=== PATIENT | female | born 1960 | race Two or more races ===

== ENCOUNTER → 2025-03-24 | Outpatient (CLI) | payer OTHER, MEDICAID, SELFPAY ==
--- NOTE | 2025-03-24 | XR_ITS ---
Examination: Bilateral AP knees single view Technique one AP portable standing bilateral knees single view Date and time: March 24, 2025 1043 hours INDICATIONS: Bilateral knee pain one year. One is: Severe osteopenia. Advanced narrowing medial joint space right knee, [id number] Advanced osteoarthritis lateral joint space right knee Moderate narrowing osteoarthritis medial lateral joint spaces left knee No fractures IMPRESSION: Advanced narrowing medial joint space right knee, [id number]
== END | disposition home or self-care (01) ==
PROVIDERS: PCP Nurse Practitioner Family; Referring Provider Nurse Practitioner Family; Visit Provider Nurse Practitioner Family
DX: M25.861 Other specified joint disorders, right knee (principal)
CPT/HCPCS: 73565

== ENCOUNTER 2025-04-05 11:21 | Emergency (ER) | payer OTHER, MEDICAID, SELFPAY ==
--- NOTE | 2025-04-05 11:35 | PC.NURSE ---
BEDSIDE BS CHECK 42. PT A/O. JUICE AND SANDWICH GIVEN. CHARGE NURSE NOTIFIED.
[2025-04-05 11:42] VITALS: BP 192/92; PULSE 82; RESP 16; O2SAT 99; BMI 29.9
--- NOTE | 2025-04-05 11:56 | PD.EDRECHK ---
ED Recheck Abnl Lab Rx-RME/HPI General Chief Complaint: Recheck/Abnormal Lab/Rx Stated Complaint: CAN'T CONTROL BS Time Seen by Provider: 04/05/25 11:54 Arrival date/time: 04/05/25 11:21 RME / HPI RME / HPI narrative: 65-year-old female patient was brought in by family for evaluation regarding acting right complaining of generalized weakness. Patient woke up this morning with a blood sugar of 180, her family gave her 10 units of insulin and patient went back to sleep she did not eat her breakfast. She woke up feeling tired and elevated confused according to the family. When the patient arrived at triage her blood sugar was noted to be 42. Patient is alert and oriented x 3 on my initial evaluation. She was eating sandwich and drinking orange juice. She denies any vomiting denies any diarrhea she denies any chest pain denies any abdominal pain denies any fever. She is taking metformin and insulin shots. Related Data Home Medications ?Medication ?Instructions ?Recorded ?Confirmed metformin 1,000 mg tablet 1,000 mg PO BID 02/18/19 07/27/21 pravastatin 20 mg tablet 20 mg PO QDAY 02/18/19 07/27/21 lisinopril 20 mg tablet (Prinivil) 20 mg PO QDAY 07/27/21 07/27/21 Allergies Allergy/AdvReac Type Severity Reaction Status Date / Time No Known Allergies Allergy Verified 07/27/21 05:25 Review of Systems Review of Systems Narrative Review of Systems: Review of system reviewed and within normal limits except mentioned in HPI ED Exam Narrative Physical exam: VITAL SIGNS: Reviewed. GENERAL APPEARANCE: Alert and interactive, follows commands, no acute distress, HEAD AND FACE: Non-traumatic. ENT: PERRL, pink conjunctivitis, eyelid no trauma, Mucous membrane moist. NECK: Supple, nontender, no nuchal rigidity. CHEST: No tenderness, no crepitus, no paradoxical movement, no retractions. LUNGS: Clear, well ventilated, symmetric, no rales, no wheezing, no ronchi, no stridor, good breath sounds bilaterally. HEART: Regular rate, regular rhythm, no murmur, no gallops. ABDOMEN: Soft, positive bowel sounds, nondistended, no guarding, nontender, no rebound, no masses, RECTAL: Deferred. GENITAL: Deferred. NEUROLOGICAL: Gross motor function intact sensory function intact, Appropriate for age. MUSCULOSKELETAL: low back nontender, full range of motion. EXTREMITIES: Nontender, full range of motion. SKIN: Color pink, dry, no rash, no lacerations, no abrasions, no contusions. LYMPHATICS: Deferred. Course Quality Measures none Orders Category Date Time Status Bedside COVID-19 Antigen Test NOW Care 04/05/25 12:04 Completed XR chest 1V Stat Exams 04/05/25 12:03 Completed B-Type Natriuretic Peptide Stat Lab 04/05/25 11:48 Completed CBC Stat Lab 04/05/25 11:48 Completed Comprehensive Metabolic Panel Stat Lab 04/05/25 11:48 Completed Partial Thromboplastin Time Stat Lab 04/05/25 11:48 Completed Troponin I Stat Lab 04/05/25 11:48 Completed Urinalysis, C/S if Indicated Stat Lab 04/05/25 12:52 Completed Vital Signs Vital signs: Vital Signs Pulse Rate 82 04/05/25 11:42 Respiratory Rate 16 04/05/25 11:42 Blood Pressure 192/92 H 04/05/25 11:42 Pulse Oximetry (%) 99 04/05/25 11:42 Oxygen Delivery Method Room Air 04/05/25 11:42 Recheck / Abnormal Lab / Rx MDM Narrative MDM Narrative:: 65-year-old female patient was brought in by family for evaluation regarding acting right complaining of generalized weakness. Patient woke up this morning with a blood sugar of 180, her family gave her 10 units of insulin and patient went back to sleep she did not eat her breakfast. She woke up feeling tired and elevated confused according to the family. When the patient arrived at triage her blood sugar was noted to be 42. Patient is alert and oriented x 3 on my initial evaluation. She was eating sandwich and drinking orange juice. She denies any vomiting denies any diarrhea she denies any chest pain denies any abdominal pain denies any fever. She is taking metformin and insulin shots. Patient remained stable, there is no recurrence of hypoglycemia in the ED. Initial repeat blood sugar was noted to be 151 prior to discharge went up to 161. No symptoms. Patient ate sandwich and orange juice in the ED. Patient stable for discharge home I told her not to give herself insulin shot and go back to sleep especially the fast acting insulin. Without eating. Patient and family agrees with the plan. Patient's workup is significant for blood sugar of 40 the rest of the labs unremarkable Patient data External records reviewed:: None Clinical information provided by:: family Social determinants that could affect healthcare access:: none Patient has the following chronic illnesses:: Diabetes mellitus hypertension How is presenting disease/condition affected by chronic disease/condition?: exacerbated by Evaluation data The following diagnostics were reviewed and interpreted by me:: radiology exam(s) Lab and/or radiology exams considered but not ordered:: None Interpretation Summary: I personally reviewed and interpreted the x-ray of this patient. There is no acute abnormalities found, no infiltrates no pneumothorax no hemothorax normal chest x-ray. Review of other structures was without significant abnormal findings also. I additionally reviewed the radiologist report and agree with the interpretation. Medications / Prescriptions Medications or Prescriptions considered but not ordered:: None Medication administrations:: None Consultations Consultation(s) initiated? (list below): No Diagnosis Recheck Differential Diagnosis: other (Altered mental status, hypoglycemia, poor medication compliance) Most likely diagnosis given after review of the tests above:: Hypoglycemia secondary to diabetes mellitus Admission Indicated Admission indicated?: not indicated Admission Request Was there a request for admission?: No Disposition Plan Disposition Plan: Discharge Discharge Attestation Discharge Attestation: The patient and all family members were given an opportunity to ask questions and understood the discharge instructions. Discharge instructions specifically effects, indications for sooner follow up or return to the emergency department, and the expected course of current diagnosis. Patient condition: Stable Discharge Plan Plan Patient Disposition: HOME (Self Care) Discharge Disposition comment: Stable Prescriptions/Referrals Prescriptions/Med Rec: No Action metformin 1,000 mg Tablet 1,000 mg PO BID pravastatin 20 mg Tablet 20 mg PO QDAY lisinopril [Prinivil] 20 mg Tablet 20 mg PO QDAY Referrals: Petra([facility]),LADONNA Bush [Primary Care Provider] - In 1 week Problem List Clinical Impression: Hypoglycemia Patient/Caregiver Discharge Instructions Discharge Activity: activity as tolerated Education Materials: Hypoglycemia (Low Blood Sugar) Additional Instructions: Thank you for the opportunity for serving you today. You are stable for discharged . You are advised to: Follow-up with your PCP in 1 to 2 days Return to ED for worsening of symptoms Increase oral fluids Eat 3 meals a day with snacks in between, and do not give yourself insulin and go back to sleep specially the fast acting insulin without eating Print Language: Welsh Stand Alone Forms: Al[facility] Award Info., Patient Portal Info Letter PA/CLINICAL CARE MANAGER Supervising Physician PA/CLINICAL CARE MANAGER Supervising Physician: MD Wilner
--- NOTE | 2025-04-05 12:03 | XR_ITS ---
Examination: AP chest single view Technique one AP portable upright chest single view Date and time: April 05, 2025 12:15 PM, comparison July 24, 2021 INDICATIONS: Chest pain weakness beginning 2 days ago. FINDINGS: Normal heart size. Lungs are clear. The osseous structures are intact IMPRESSION: No active disease.
[2025-04-05 12:16] LABS: Basophils # (Auto) 0.0 Thou/mm3 (0.0-0.2); Basophils % (Auto) 0 % (0-2.5); Eosinophils # (Auto) 0.0 Thou/mm3 (0.0-0.5); Eosinophils % (Auto) 0 % (0-10); Hematocrit 39.9 % (36.0-46.0); Hemoglobin 13.1 g/dL (12.0-16.0); Immature Granulocytes Auto 0.03 Thou/mm3 (0.00-0.00); Lymphocytes # (Auto) 1.1 Thou/mm3 (1.0-4.8); Lymphocytes % (Auto) 12 % (10-50); Mean Corpuscular HGB Conc 32.8 g/dl (31.0-37.0); Mean Corpuscular Hemoglobin 30.5 pg (25.0-35.0); Mean Corpuscular Volume 93 fL (80-100); Monocytes # (Auto) 0.4 Thou/mm3 (0.0-0.8); Monocytes % (Auto) 4 % (0-12); Neutrophils # (Auto) 7.8 Thou/mm3 (1.8-7.7); Neutrophils % (Auto) 83 % (37-80); Nucleated Red Blood Cell # 0.00 Thou/mm3 (0.00-0.00); Nucleated Red Blood Cell % 0 /100 WBC (0); Platelet Count 250 Thou/mm3 (140-440); RDW Standard Deviation 43.0 fL (36.4-46.3); Red Blood Count 4.30 Miln/mm3 (4.00-5.20); White Blood Count 9.3 Thou/mm3 (3.6-11.0)
[2025-04-05 12:29] LABS: Partial Thromboplastin Time 25.7 Seconds (22.0-36.0)
[2025-04-05 12:35] LABS: Alanine Aminotransferase 24 U/L (10-49); Albumin, Serum 4.5 gm/dL (3.4-4.8); Albumin/Globulin Ratio 1.4 (1.2-2.2); Alkaline Phosphatase 66 U/L (46-116); Anion Gap 9 (7-16); Aspartate Amino Transferase 30 U/L (0-34); BUN/Creatinine Ratio 19 Ratio (12-20); Bilirubin,Total 0.4 mg/dL (0.3-1.2); Blood Urea Nitrogen 21 mg/dL (9-23); Calcium 10.1 mg/dL (8.3-10.6); Calcium (Corrected) 10.1 mg/dL (8.5-10.1); Carbon Dioxide 23.3 mMol/L (20.0-31.0); Chloride 110 mMol/L (98-107); Creatinine (Component) 1.1 mg/dL (0.6-1.3); Estimated Creatinine Clearance 55.3 mL/min (>60); Globulin 3.2 gm/dL (2.3-3.5); Osmolality,Calculated 283 (275-295); Potassium 4.2 mMol/L (3.4-5.1); Sodium 142 mMol/L (136-145); Total Protein 7.7 gm/dL (5.7-8.2); Troponin I < 0.020 ng/mL (0.0-0.045); eGFR 56 See Note
--- NOTE | 2025-04-05 12:37 | PC.NURSE ---
Pt. up to RR, daughter with pt., urine cup given.
[2025-04-05 12:48] LABS: Glucose 40 mg/dL (74-106)
[2025-04-05 12:49] LABS: B-Type Natriuretic Peptide < 20 pg/mL (0-100)
--- NOTE | 2025-04-05 12:56 | PC.NURSE ---
Pt. here from home to room 8, pt.'s daughter states pt. sugar has been dropping in the morning, daughter states pt. has been taking insulin at night. Pt. sitting up in bed smiling and talking with daughter at this time.
[2025-04-05 12:58] LABS: Collection Type, Urine Clean Catch
[2025-04-05 13:11] LABS: Bilirubin,Urine Negative (Negative); Blood,Urine Negative (Negative); Clarity,Urine Clear (Clear/Hazy); Color,Urine Lt-Yellow (Lt Yel-Yel); Culture Indicated,Urine Not Indicated; Glucose, Urine 4+ (Negative); Ketones,Urine Negative (Negative); Leukocyte Esterase,Urine Negative (Negative); Nitrite,Urine Negative (Negative); PH,Urine 6.0 (5.0-7.0); Protein,Urine 1+ (Neg - Trace); RBC,Urine < 1 /hpf (0-3); Specific Gravity,Urine 1.015 (1.001-1.035); Squamous Epithelial Cell,Urine 1 /hpf (0-5); Urobilinogen,Urine Negative mg/dL (0.0-1.0); WBC,Urine 1 /hpf (0-5)
[2025-04-05 14:18] VITALS: BP 172/90; PULSE 72; RESP 18; TEMP 36.7; O2SAT 99
[2025-04-05 14:37] VITALS: BP 172/90; PULSE 72; RESP 16; TEMP 36.7; O2SAT 99
== END 2025-04-05 14:25 | disposition home or self-care (01) ==
PROVIDERS: Nurse Practitioner Family; Emergency Provider Emergency Medicine; PCP Nurse Practitioner Family
DX: E11.649 Type 2 diabetes mellitus with hypoglycemia without coma (principal); I10 Essential (primary) hypertension
CPT/HCPCS: 36415; 71045; 80053; 81001; 83880; 84484; 85025; 85730; 87811; 99283

== ENCOUNTER → 2025-04-19 | Outpatient (CLI) | payer OTHER, MEDICAID, SELFPAY ==
--- NOTE | 2025-04-19 | XR_ITS ---
Examination: Lumbar spine, 5 views Technique: Lumbar spine AP, lateral, coned lateral lower lumbar spine, bilateral obliques 5 views Exam date and time: April 19, 2025, 1140 hours INDICATIONS: Lower back pain beginning 1 year ago. FINDINGS: Severe osteopenia. Lumbar levoscoliosis 10 degrees. Diffuse advanced facet arthropathy. Grade 1 anterolisthesis L4 on L5. Moderate to advanced degenerative disc disease L4-L5, L5-S1 Chronic osteoporotic compression T12 and T11 IMPRESSION: Moderate to advanced degenerative disc disease L4-L5, L5-S1
== END | disposition home or self-care (01) ==
LOC: CDIM 11:09
PROVIDERS: PCP Nurse Practitioner Family; Referring Provider Nurse Practitioner Family; Visit Provider Nurse Practitioner Family
DX: M51.360 Other intervertebral disc degeneration, lumbar region with discogenic back pain only (principal); M51.370 Other intervertebral disc degeneration, lumbosacral region with discogenic back pain only
CPT/HCPCS: 72110